=== PATIENT | female | born 1990 | race Caucasian/White ===

== ENCOUNTER 2021-06-06 12:05 | Emergency (ER) | payer OTHER ==
[~2021-06-06] VITALS: Ht 165.1 cm; Wt 96.6 kg
[2021-06-06] MEDS ORDERED: PROMETHAZINE HC25 M1 PO (18:00)
== END 2021-06-06 18:24 | disposition home or self-care (01) ==
LOC: ED 12:05
DX: R11.2 Nausea with vomiting, unspecified (principal); Z88.0 Allergy status to penicillin; Z88.1 Allergy status to other antibiotic agents
CPT/HCPCS: 36415; 80053; 81001; 83690; 84703; 85025; 96374; 96375; 96376; 99284-25; J1790; J2405; J7030